=== PATIENT | male | born 1960 | race Caucasian/White ===

== ENCOUNTER 2018-06-02 07:30 | Inpatient (IN) ==
[2018-06-04] MEDS ORDERED: Metoprolol Tartrate 25 MG Tablet PO SCH (05:00)
[2018-06-04] MEDS ORDERED: Chlorhexidine Gluconate 2% 1 Pack (2 Cloths) TOPICAL ONE (05:24)
[2018-06-04] MEDS ORDERED: Metoprolol Tartrate 25 MG Tablet PO ONE (05:24)
[2018-06-04] MEDS ORDERED: Dextrose 50% in Water 50 ML Vial IV.PUSH PRN ×2 (05:29→12:18)
[2018-06-04] MEDS ORDERED: Insulin Regular (For Infusion) 100 UNIT in Sodium Chlor 0.9% Inj 99 ML IV.CONT PRN ×2 (05:29→14:00)
[2018-06-04] MEDS ORDERED: Chlorhexidine 4% Topical 120 APPLIC/120 ML Bottle TOPICAL SCH (05:30)
[2018-06-04] MEDS ORDERED: Sodium Chlor 0.9% Inj 77.5 ML, Papaverine Inj 60 MG, Nitroglycerin Inj 100 MCG, dilTIAZ... IRRIGATION SCH ×3 (05:30)
[2018-06-04] MEDS ORDERED: Sodium Chloride 0.9% Irr Bot 1,000 ML, Vancomycin Inj 1,000 MG IRRIGATION SCH ×2 (05:30)
[2018-06-04] MEDS ORDERED: Sodium Chlor 0.9% Inj 500 ML IV.SIG ONE (05:30)
[2018-06-04] MEDS ORDERED: Vancomycin Inj 1,750 MG in Sodium Chlor 0.9% Inj 500 ML IV.SIG SCH (06:00)
[2018-06-04] MEDS ORDERED: Heparin - SQ 10,000 UNITS/ML Vial ONE (06:38)
[2018-06-04] MEDS ORDERED: fentaNYL Citrate Inj 250 MCG/5 ML Ampul ONE (06:43)
[2018-06-04] MEDS ORDERED: Sodium Chlor 0.9% Inj 20 ML, Bupivacaine Liposo PF 1.3% Inj 20 ML, Dexamethasone PF Inj... IRRIGATION ONE ×4 (06:51)
[2018-06-04] MEDS ORDERED: Sugammadex Inj 200 MG/2 ML Vial IV.PUSH ONE (12:16)
[2018-06-04] MEDS ORDERED: RESP: Racemic Epinephrine 2.25% 0.5 ML Neb NEB PRN (12:18)
[2018-06-04] MEDS ORDERED: Potassium Chlor 20 mEq Premix 20 MEQ/100 ML PIGGYBACK IV.SIG PRN ×2 (12:18)
[2018-06-04] MEDS ORDERED: Calcium Chloride Inj 1 GM/10 ML Syringe IV.PUSH PRN (12:18)
[2018-06-04] MEDS ORDERED: Albumin Human 5% Inj 250 ML IV.SIG PRN (12:18)
[2018-06-04] MEDS ORDERED: Morphine Inj 4 MG/ML Vial IV.PUSH PRN (12:18)
[2018-06-04] MEDS ORDERED: Clevidipine Inj 25 MG/50 ML VIAL IV.CONT PRN (12:18)
[2018-06-04] MEDS ORDERED: Post-op Orders (for Pharmacy) OTHER STA (12:18)
[2018-06-04] MEDS ORDERED: Magnesium Sulfate Inj 2 GM in Sodium Chlor 0.9% Inj 96 ML IV.SIG PRN ×4 (12:18)
--- NOTE | 2018-06-04 12:35 | P.OP ---
Date of procedure: 06/04/18 Anesthesia: GETA Surgeon: Olimpia Lynn MD Operation and Findings: PREOPERATIVE DIAGNOSES 1. Coronary Artery Disease 2. Chronic Atrial Fibrillation POSTOPERATIVE DIAGNOSES Same SURGICAL PROCEDURE 1. Minimally Invasive Coronary Artery Bypass Grafting (MIDCAB) with LOGAN to LAD 2. Left Atrial Appendage Ligation with the Atri-Clip Device 3. Intraoperative Vein Mapping 4. Intercostal Nerve Block DIRECTOR OF PROGRAM MANAGEMENT RIKI Burlseon ANESTHESIA General endotracheal. ADMINISTRATIVE SPECIALIST Huog Ngo CRNA, Wiley Caputo MD PREPARATION ChloraPrep. NEEDLE, SPONGE AND INSTRUMENT COUNT Correct. DRAINS 28 Fr Chest Tube. COMPLICATIONS None. INDICATIONS The patient is a 57 -year-old with coronary artery disease and chronic atrial fibrillation, presenting for surgical correction of the above pathology. DESCRIPTION OF PROCEDURE The patient was brought to the operating room and placed supine on the OR table. Intraoperative vein mapping was performed and revealed suitable-caliber conduit in bilateral lower extremities. Following the induction of adequate general double lumen endotracheal anesthesia and placement of appropriate monitoring devices, the patient was then prepped and draped in the standard sterile fashion. The patient was positioned supine with the left chest slightly bumped up using an inflatable balloon. A left anterior mini-thoracotomy (6 cm) was then performed in the 4th ICS mid- clavicular line and carried down to the pleura. The left pleural space was entered. Using the [employer] Thoratrak retractor, the left internal mammary artery (LOGAN) was dissected free as a pedicle from the posterior sternal table. The entire length from the innominate vein to its bifurcation was harvested. The patient was systemically heparinized and anticoagulation monitored by serial ACT measurements. The pericardium was then opened longitudinally over the anterior wall. Stay sutures were placed and the heart exposed. The LAD was identified coursing trans-apically and isolated. At this point the LOGAN was anastomosed to the mid LAD in an end-to-side fashion in a beating heart manner using the [employer] NS stabilizer and a running 7-0 Prolene stitch. The anastomosis was inspected and appeared to be hemostatic and patent with triphasic flow via doppler evaluation. Next the left atrial appendage was exposed and measured. Using SAVANNAH guidance, the atrial appendage was ligated using the Atri-Clip device. Complete ligation of the appendage lumen was confirmed by SAVANNAH. Strict hemostasis was assured. Protamine was given. The pericardium was reapproximated with interrupted Vicryl sutures. The length of the LOGAN graft as well as the harvest sites were inspected and assured to be hemostatic. Intercostal nerve block was performed using Exparel solution at the level of the incision as well as two rib spaces above and below. A 28 Fr chest tube was placed in the pleural space. The intercostal space was approximated with 2 pericostal sutures of #1 Vicryl. The musculo-fascial layer was then closed in 2 layers. The skin was reapproximated with subcuticular stitch and Dermabond. The patient tolerated the procedure well and was extubated in the operating room and transferred to CVICU in stable condition.
[2018-06-04] MEDS ORDERED: Naloxone Inj 0.4 MG/ML Vial ONE (12:51)
[2018-06-04] MEDS ORDERED: Metoprolol Inj 5 MG/5 ML Vial IV.PUSH PRN (13:00)
[2018-06-04] MEDS ORDERED: Dexmedetomidine Inj 200 MCG in Sodium Chlor 0.9% Inj 48 ML IV.CONT PRN (13:00)
[2018-06-04] MEDS ORDERED: Acetaminophen 325 MG Tablet PO PRN (13:00)
[2018-06-04] MEDS ORDERED: Acetaminophen 650 MG Supp RECTAL PRN (13:00)
[2018-06-04] MEDS ORDERED: hydrALAZINE HCl Inj 20 MG/ML Vial ONE (13:15)
[2018-06-04] MEDS: Calcium Chloride Inj 1 GM in Sodium Chlor 0.9% Inj 100 ML IV.SIG PRN ×2 (13:42→16:38)
--- NOTE | 2018-06-04 13:42 | XR ---
EXAM DATE: 06/04/2018 1:38 PM EST AGE/SEX: 57 years / Male INDICATIONS: Post op cabg. CLINICAL DATA: This is the patient's initial encounter. Patient reports that signs and symptoms have been present for 1 day and indicates a pain score of Nonresponsive. MEDICAL/SURGICAL HISTORY: Chronic obstructive pulmonary disease. a-fib None. COMPARISON: [facility], CHEST 2V PA&LAT, 05/28/2018. . FINDINGS: Central line and left chest tube in good position. Lungs are under aerated with mild interstitial pro minence. Mild prominence to the cardiac silhouette on this expiratory film. There is no pneumothorax. CONCLUSION: Left chest tube without pneumothorax Under aerated lungs with mild interstitial prominence. Electronically signed by: Robles Paris MD Board Certified Radiologist 06/04/2018 1:40 PM EST
--- NOTE | 2018-06-04 13:44 | P.PNCV ---
- Note Subjective/Hospital Course: 57/ male recently seen in office by Dr Lynn for new onset progressive SOB since January, of atrial fib on xarelto. Work up included cardiac cath demonstrating significant disease involving ostium of the LAD . Normal EF PMH: COPD, HLP, HTN, Thyroid disease , chronic tobacco abuse 06/04 pt electively admitted for surgery PREOPERATIVE DIAGNOSES 1. Coronary Artery Disease 2. Chronic Atrial Fibrillation POSTOPERATIVE DIAGNOSES Same SURGICAL PROCEDURE 1. Minimally Invasive Coronary Artery Bypass Grafting (MIDCAB) with LOGAN to LAD 2. Left Atrial Appendage Ligation with the Atri-Clip Device 3. Intraoperative Vein Mapping 4. Intercostal Nerve Block Objective: Vital Signs - 24 hr 06/04/18 06:20 06/04/18 13:17 06/04/18 13:22 Temperature 98.4 F Pulse Rate 69 74 80 Respiratory Rate 18 4 L 15 Blood Pressure 129/67 Pulse Oximetry 97 Labs: Laboratory Results - last 12 hr 06/04/18 06:09 Blood Type O Positive Antibody Screen Negative MTS Gel Crossmatch See Detail
--- NOTE | 2018-06-04 13:47 | P.DCO ---
- Diagnosis (1) S/P CABG x 1 Status: Acute (2) CAD (coronary artery disease), [place] coronary artery Status: Acute (3) Atrial fibrillation Status: Acute (4) Hyperlipidemia Status: Acute (5) Hypertension Status: Acute - Home Health Nursing Order: Medical education, Signs/symptoms of disease process, Wound care and dressing changes, Nursing assessment with vital signs Instructions: Heart and Vascular Surgery patients *Special attention to sternal dressing Mandatory frequency Assess and evaluation, 4 days in a row The next week 3X week 2 times a week for 4 weeks 1 time a week for 5 weeks Schedule Heart and Vascular patients for full 60 day certification period Initial visit Review Open Heart Surgery Discharge Instructions (Sternal precautions, Activity, Elastic hose, Incision care, Driving, Incentive spirometry, Smoking, [place], Work and other) Need Betadine to paint incision Medication reconciliation Importance of follow up care/ check on appointments Make calendar record temperature daily When to call [facility] at Home nurse, review instructions, phone list Incentive Spirometry, demonstration Visit 1- Begin discharge instruction for patient family and/ or caregiver using teach back method- Signs and symptoms of infection Disease characteristics Medicines and side effects Foods and nutrition/ appetite Infection control/ hand washing/ hygiene Visit 2- Continue teaching Discharge instructions- include additional information on smoking cessation , sternal dressing (sternal vac) Visit 3- Continue teaching- Cough and deep breathing, incision monitoring. Choose my plate Visit 4- Continue teaching- Discuss limitations Discuss how they are feeling Discuss progress toward goals Remaining visits- continue teaching and monitoring For any questions please call : Saturday 8am-5pm Heart & Vascular Surgery Office ( Dr. Lynn & Dr. Wilburn), After Hours / Nights (5pm -8am) Weekends and Holidays Please call [facility] Cardiac Intermediate Care Unit (CIC) Charge Nurse Incentive spirometry Q1 hr x 10, while awake, also use acapella device hourly whole awake Sternal Breast Bone Precautions: NO pushing or pulling, ( pt must use sternal pillow to support chest with all activities and with coughing ( takes up to 3 months breast bone to heal ) Daily incision care: ok to shower daily, no tub bath. Wash all incisions with liquid dial soap, clean wash cloth to each site, rinse and pat dry. Observe for any signs of infection, such as drainage which is dark yellow, ibrahim, green or foul smelling. Immediately report to the surgeon any drainage from the chest incision, or legs, and for any abnormal drainage from the chest tube sites. Notify surgeon if any temp >101.5 degrees F. When specialty dressing removed/ or if you do not have one, continue to shower daily as above, then rinse and pat incision dry and paint with betadine daily x 5 days. Allow steri strips to fall off if you have any. Avoid lotions, creams, salves, oils, etc. for the first month F/U appointment: as per [place] instructions: PCP in 2 weeks, CV surgeon 2 weeks, Hammer Operator 3-4 weeks For any questions regarding incisions/ dressing / meds / post op care or above Symptoms, Saturday 8am-5pm Heart & Vascular Surgery Office ( Dr. Lynn & Dr. Wilburn), After Hours / Nights (5pm -8am) Weekends and Holidays Please call [facility] Cardiac Intermediate Care Unit (CIC) Charge Nurse - Case Management Consult Case Management Consult-Home Health: Yes - Certification I have seen patient Raudel Horton on 06/04/18. My clinical findings support the need for the requested home health care services because: Deconditioned with increased weakness I certify that my clinical findings support that this patient is homebound because: Post-op weakness
[2018-06-04] MEDS ORDERED: Phenylephrine Inj 40 MG in Sodium Chlor 0.9% Inj 496 ML IV.CONT PRN (14:00)
[2018-06-04] MEDS ORDERED: Nitroglycerin Drip Premix 50 MG/250 ML BOTTLE IV.CONT PRN (14:35)
[2018-06-04] MEDS: fentaNYL Citrate Inj 100 MCG/2 ML Ampul IV.PUSH PRN ×4 (15:15→21:40)
[2018-06-04] MEDS: Potassium Chlor 20 mEq Premix 20 MEQ/100 ML PIGGYBACK IV.SIG PRN ×2 (16:27→21:39)
[2018-06-04] MEDS ORDERED: VANCOMYCIN IV.SIG SCH (21:00)
[2018-06-04] MEDS ORDERED: SODIUM CHLOR 0.9% IV.SIG SCH (21:00)
[2018-06-04] MEDS: Vancomycin Inj 1,750 MG in Sodium Chlor 0.9% Inj 500 ML IV.SIG SCH (21:35)
[2018-06-04] MEDS: Amiodarone 200 MG Tablet PO SCH (21:35)
[2018-06-04] MEDS: Mupirocin 2% Nasal Oint Topical Syringe EACH NARE SCH (21:38)
[2018-06-04] MEDS: Ketorolac Inj 30 MG/ML (IVP) Vial IV.PUSH PRN (21:39)
[2018-06-05] MEDS: fentaNYL Citrate Inj 100 MCG/2 ML Ampul IV.PUSH PRN ×3 (01:46→04:48)
[2018-06-05 05:29] LABS: Hematocrit 33.7 % (39.0-51.0); Hemoglobin 10.7 gm/dL (13.0-17.0); Mean Corpuscular HGB Conc 31.8 % (32.0-36.0); Mean Corpuscular Hemoglobin 26.9 pg (27.0-34.0); Mean Corpuscular Volume 84.6 fL (80.0-100.0); Mean Platelet Volume 8.5 fL (7.0-11.0); Platelet Count 209 th/mm3 (150-450); Red Blood Count 3.99 mil/mm3 (4.50-5.90); Red Cell Distribution Width 16.7 % (11.6-17.2); White Blood Count 11.7 th/mm3 (4.0-11.0)
--- NOTE | 2018-06-05 05:48 | XR ---
EXAM DATE: 06/05/2018 5:39 AM EST AGE/SEX: 57 years / Male INDICATIONS: Shortness of breath, possible pneumothorax. CLINICAL DATA: This is the patient's subsequent encounter. Patient reports that signs and symptoms h ave been present for 2 days and indicates a pain score of 8/10. MEDICAL/SURGICAL HISTORY: Chronic obstructive pulmonary disease. A-fib. CABG. [place] [facility] [place]. . FINDINGS: A single AP view of the chest demonstrates a left thoracostomy tube without pneumothorax. Low lung vo lumes bilaterally. Interstitial prominence throughout the lungs is unchanged. Developing consolidatio n within the left base. No effusions. Heart is mildly enlarged. Right-sided central line. Subcutane ous cutaneous air overlies left chest. CONCLUSION: 1. Developing consolidation within the left lung base. 2. No pneumothorax. Electronically signed by: Dm Pratt MD Board Certified Radiologist 06/05/2018 5:47 AM EST
[2018-06-05 05:49] LABS: Anion Gap 5 meq/L (5-15); Blood Urea Nitrogen 13 mg/dL (7-18); Calcium 8.3 mg/dL (8.5-10.1); Carbon Dioxide 25.6 meq/L (21.0-32.0); Chloride 110 meq/L (98-107); Glomerular Filtration Rate Greater Than 89 mL/min (>89); Glucose,Random 120 mg/dL (74-106); Magnesium 2.2 mg/dL (1.5-2.5); Sodium 141 meq/L (136-145)
[2018-06-05] MEDS: Amiodarone 200 MG Tablet PO SCH (08:21)
[2018-06-05] MEDS: Vancomycin Inj 1,750 MG in Sodium Chlor 0.9% Inj 500 ML IV.SIG SCH ×2 (08:22→21:00)
[2018-06-05] MEDS ORDERED: Sod Phosphate/Sod Biphosphate (Adult) Enema 133 ML Bottle RECTAL PRN (09:06)
[2018-06-05] MEDS ORDERED: Dextrose 50% in Water 50 ML Vial IV.PUSH PRN (09:06)
[2018-06-05] MEDS ORDERED: Bisacodyl 10 MG Supp RECTAL PRN (09:06)
--- NOTE | 2018-06-05 09:29 | P.PNCV ---
- Note Subjective/Hospital Course: 57/ male recently seen in office by Dr Lynn for new onset progressive SOB since January, of atrial fib on xarelto. Work up included cardiac cath demonstrating significant disease involving ostium of the LAD . Normal EF PMH: COPD, HLP, HTN, Thyroid disease , chronic tobacco abuse 06/04 pt electively admitted for surgery PREOPERATIVE DIAGNOSES 1. Coronary Artery Disease 2. Chronic Atrial Fibrillation POSTOPERATIVE DIAGNOSES Same SURGICAL PROCEDURE 1. Minimally Invasive Coronary Artery Bypass Grafting (MIDCAB) with LOGAN to LAD 2. Left Atrial Appendage Ligation with the Atri-Clip Device 3. Intraoperative Vein Mapping 4. Intercostal Nerve Block extubated after surgery crystalloid 3200cc, EBL 300cc 06/05 up in chair, painful in NSR chest tube to wall suction on Objective: Vital Signs - 24 hr 06/04/18 13:10 06/04/18 13:15 06/04/18 13:17 Temperature 97.5 F L Pulse Rate 82 74 Respiratory Rate 18 4 L Blood Pressure 167/84 H Pulse Oximetry 97 97 06/04/18 13:22 06/04/18 14:00 06/04/18 14:30 Temperature Pulse Rate 80 77 Respiratory Rate 15 19 Blood Pressure 137/80 Pulse Oximetry 92 L 90 L 06/04/18 14:39 06/04/18 15:00 06/04/18 16:22 Temperature 98 F Pulse Rate 71 Respiratory Rate 15 10 L Blood Pressure 124/77 Pulse Oximetry 98 97 06/04/18 16:35 06/04/18 17:04 06/04/18 17:21 Temperature Pulse Rate 80 Respiratory Rate 20 14 Blood Pressure Pulse Oximetry 96 06/04/18 18:09 06/04/18 18:10 06/04/18 19:00 Temperature 98.2 F Pulse Rate 88 Respiratory Rate 12 12 20 Blood Pressure 131/77 Pulse Oximetry 97 06/04/18 21:28 06/04/18 22:10 06/04/18 23:00 Temperature 98.2 F Pulse Rate 88 91 H Respiratory Rate 20 20 20 Blood Pressure 113/57 L Pulse Oximetry 97 06/05/18 03:00 06/05/18 03:50 06/05/18 04:47 Temperature 98.2 F Pulse Rate 88 83 Respiratory Rate 20 16 20 Blood Pressure 112/64 Pulse Oximetry 97 06/05/18 05:20 06/05/18 06:50 06/05/18 07:00 Temperature 98.2 F Pulse Rate 82 Respiratory Rate 20 20 12 Blood Pressure 116/70 Pulse Oximetry 97 GENERAL: A&O x 3 SKIN: Warm and dry. prevena dressing to left chest area HEAD: Normocephalic. EYES: No scleral icterus. No injection or drainage. NECK: Supple, trachea midline. No JVD or lymphadenopathy. CARDIOVASCULAR: Regular rate and rhythm without murmurs, gallops, or rubs. RESPIRATORY: Breath sounds equal bilaterally. No accessory muscle use. chest tube to wall suction/ no air leak GASTROINTESTINAL: Abdomen soft, non-tender, nondistended. MUSCULOSKELETAL: No cyanosis, or edema. BACK: Nontender without obvious deformity. No CVA tenderness. Labs: Laboratory Results - last 12 hr 06/04/18 06/05/18 06/05/18 22:21 00:20 03:28 WBC RBC Hgb Hct MCV MCH MCHC RDW Plt Count MPV Sodium Potassium Chloride Carbon Dioxide Anion Gap BUN Creatinine Estimated GFR POC Glucose 118 H 106 143 H Random Glucose Calcium Magnesium 06/05/18 06/05/18 06/05/18 04:53 04:55 04:55 WBC 11.7 H RBC 3.99 L Hgb 10.7 L Hct 33.7 L MCV 84.6 MCH 26.9 L MCHC 31.8 L RDW 16.7 Plt Count 209 MPV 8.5 Sodium 141 Potassium 4.0 Chloride 110 H Carbon Dioxide 25.6 Anion Gap 5 BUN 13 Creatinine 0.84 Estimated GFR Greater than 89 POC Glucose 122 H Random Glucose 120 H Calcium 8.3 L Magnesium 2.2 06/05/18 07:20 WBC RBC Hgb Hct MCV MCH MCHC RDW Plt Count MPV Sodium Potassium Chloride Carbon Dioxide Anion Gap BUN Creatinine Estimated GFR POC Glucose 77 Random Glucose Calcium Magnesium Result Diagrams: 06/05/18 04:55 06/05/18 04:55 Cardiovascular: NSR - Plan (1) S/P CABG x 1 Plan: Neuro: avoid Benzo's pain control Resp : pulm toileting nebs ezpap wean 02 as tolerated CV: start BB, on ASA, statin , BB GI: on heart healthy diet PPI endo: weaned off insulin gtt sliding scale CM to eval [facility]
[2018-06-05] MEDS: Ketorolac Inj 30 MG/ML (IVP) Vial IV.PUSH PRN ×2 (10:37→21:20)
--- NOTE | 2018-06-05 11:08 | P.DIET ---
Nutritional Evaluation Screening comments: MDC for Diet Education s/p CABG x 1 on (06/04) received. Patient Navigator to provide education. Consult RD if complexities with diet education arise.
[2018-06-05] MEDS: Insulin NovoLOG Aspart Correctional Sugar Inj SQ SCH ×4 (11:57→22:13)
[2018-06-05] MEDS: Levothyroxine 50 MCG Tablet PO SCH (11:58)
[2018-06-05] MEDS: Metoprolol Tartrate 25 MG Tablet PO SCH ×2 (11:58→20:59)
[2018-06-05] MEDS: Budesonide-Formoterol 160/4.5 MCG 6 GM Inhaler INH SCH ×2 (14:41→21:00)
--- NOTE | 2018-06-05 17:26 | ECG ---
Date Performed: 06/05/2018 Time Performed: 05:18:10 PTAGE: 57 years EKG: Sinus rhythm . Possible inferior infarct - age undetermined When compared to previous tracing, Q waves are now not ed in Lead AVF, Clinical correlation is recommended Abnormal ECG PREVIOUS TRACING : 05/28/2018 10.54 DOCTOR: Wiley Kebede Interpretating Date/Time 06/05/2018 17:24:39
[2018-06-05] MEDS: Mupirocin 2% Nasal Oint Topical Syringe EACH NARE SCH ×2 (18:25→21:00)
[2018-06-05] MEDS: Docusate Sodium 100 MG Capsule PO SCH (20:59)
[2018-06-05] MEDS ORDERED: Amiodarone Inj 150 MG in Dextrose 5% in Water Inj 97 ML IV.SIG ONE ×2 (21:00)
[2018-06-06] MEDS: Insulin NovoLOG Aspart Correctional Sugar Inj SQ SCH ×5 (01:58→22:16)
[2018-06-06 04:49] LABS: Baso # (Auto) 0.1 th/mm3 (0.0-0.2); Baso % (Auto) 0.5 % (0.0-2.0); Eos # (Auto) 0.1 th/mm3 (0.0-0.4); Eos % (Auto) 0.7 % (0.0-4.0); Hematocrit 34.3 % (39.0-51.0); Hemoglobin 11.1 gm/dL (13.0-17.0); Lymph # (Auto) 1.3 th/mm3 (1.0-4.8); Lymph % (Auto) 9.2 % (9.0-44.0); Mean Corpuscular HGB Conc 32.3 % (32.0-36.0); Mean Corpuscular Hemoglobin 27.4 pg (27.0-34.0); Mean Platelet Volume 8.8 fL (7.0-11.0); Mono # (Auto) 1.8 th/mm3 (0.0-0.9); Mono % (Auto) 12.8 % (0.0-8.0); Neut # (Auto) 10.8 th/mm3 (1.8-7.7); Neut % (Auto) 76.8 % (16.0-70.0); Platelet Count 212 th/mm3 (150-450); Red Blood Count 4.03 mil/mm3 (4.50-5.90); Red Cell Distribution Width 16.9 % (11.6-17.2)
[2018-06-06 05:17] LABS: Calcium 8.7 mg/dL (8.5-10.1); Carbon Dioxide 27.8 meq/L (21.0-32.0); Magnesium 2.4 mg/dL (1.5-2.5); Potassium 4.3 meq/L (3.5-5.1)
[2018-06-06] MEDS: Levothyroxine 50 MCG Tablet PO SCH (06:14)
[2018-06-06] MEDS: Polyethylene Glycol 3350 17 GM Packet PO SCH (09:43)
[2018-06-06] MEDS: Docusate Sodium 100 MG Capsule PO SCH ×2 (09:43→21:55)
[2018-06-06] MEDS: Multivitamin/Minerals Therapeutic Tablet PO SCH (09:44)
[2018-06-06] MEDS: Metoprolol Tartrate 25 MG Tablet PO SCH (09:44)
[2018-06-06] MEDS: Budesonide-Formoterol 160/4.5 MCG 6 GM Inhaler INH SCH ×2 (09:45→21:56)
[2018-06-06] MEDS ORDERED: Metoprolol Tartrate 25 MG Tablet PO ONE (10:30)
--- NOTE | 2018-06-06 11:21 | P.PNCV ---
- Note Subjective/Hospital Course: 57/ male recently seen in office by Dr Lynn for new onset progressive SOB since January, of atrial fib on xarelto. Work up included cardiac cath demonstrating significant disease involving ostium of the LAD . Normal EF PMH: COPD, HLP, HTN, Thyroid disease , chronic tobacco abuse 06/04 pt electively admitted for surgery PREOPERATIVE DIAGNOSES 1. Coronary Artery Disease 2. Chronic Atrial Fibrillation POSTOPERATIVE DIAGNOSES Same SURGICAL PROCEDURE 1. Minimally Invasive Coronary Artery Bypass Grafting (MIDCAB) with LOGAN to LAD 2. Left Atrial Appendage Ligation with the Atri-Clip Device 3. Intraoperative Vein Mapping 4. Intercostal Nerve Block extubated after surgery crystalloid 3200cc, EBL 300cc 06/05 up in chair, painful in NSR chest tube to wall suction on 06/06 very little pulm reserve, desats easily with any exertion on nebs, symbicort went back into afib last night / on amiodarone gtt/ resume taper dose this evening / restart xarelto and dc po plavix chest tube dc , prevena dressing dc continue ASA, statin BB Objective: Vital Signs - 24 hr 06/05/18 11:52 06/05/18 12:47 06/05/18 15:00 Temperature 98.1 F Pulse Rate 72 77 Respiratory Rate 14 15 16 Blood Pressure 109/69 Pulse Oximetry 95 95 06/05/18 16:43 06/05/18 17:00 06/05/18 18:02 Temperature Pulse Rate 83 Respiratory Rate 22 16 Blood Pressure Pulse Oximetry 93 L 06/05/18 19:00 06/05/18 20:00 06/05/18 20:38 Temperature 98.9 F Pulse Rate 85 Respiratory Rate 18 Blood Pressure 119/78 Pulse Oximetry 93 L 93 L 93 L 06/05/18 23:00 06/06/18 03:00 06/06/18 07:00 Temperature 98.0 F 98.3 F Pulse Rate 71 69 118 H Respiratory Rate 18 18 16 Blood Pressure 102/63 118/75 140/69 Pulse Oximetry 94 L 96 94 L 06/06/18 08:00 06/06/18 08:34 Temperature Pulse Rate 108 H Respiratory Rate 18 Blood Pressure Pulse Oximetry 94 L 95 GENERAL: A&O x 3 SKIN: Warm and dry. incision intact and well approximated, some swelling to site engineer: Normocephalic. EYES: No scleral icterus. No injection or drainage. NECK: Supple, trachea midline. No JVD or lymphadenopathy. CARDIOVASCULAR: irregular rate and rhythm without murmurs, gallops, or rubs. mild general edema RESPIRATORY: Breath sounds equal bilaterally. No accessory muscle use. chest tube removed without difficulty / bibasilar crackles with some exp wheeze GASTROINTESTINAL: Abdomen soft, non-tender, nondistended. MUSCULOSKELETAL: No cyanosis, or edema. BACK: Nontender without obvious deformity. No CVA tenderness. Labs: Laboratory Results - last 12 hr 06/06/18 06/06/18 06/06/18 01:55 03:59 03:59 WBC 14.0 H RBC 4.03 L Hgb 11.1 L Hct 34.3 L MCV 85.0 MCH 27.4 MCHC 32.3 RDW 16.9 Plt Count 212 MPV 8.8 Neut % (Auto) 76.8 H Lymph % (Auto) 9.2 [place] % (Auto) 12.8 H Eos % (Auto) 0.7 Baso % (Auto) 0.5 Neut # (Auto) 10.8 H Lymph # (Auto) 1.3 [place] # (Auto) 1.8 H Eos # (Auto) 0.1 Baso # (Auto) 0.1 WBC Differential . Differential Comment Auto diff final Sodium 138 Potassium 4.3 Chloride 106 Carbon Dioxide 27.8 Anion Gap 4 L BUN 26 H Creatinine 0.95 Estimated GFR 82 L POC Glucose 122 H Random Glucose 122 H Calcium 8.7 Magnesium 2.4 06/06/18 06:17 WBC RBC Hgb Hct MCV MCH MCHC RDW Plt Count MPV Neut % (Auto) Lymph % (Auto) [place] % (Auto) Eos % (Auto) Baso % (Auto) Neut # (Auto) Lymph # (Auto) [place] # (Auto) Eos # (Auto) Baso # (Auto) WBC Differential Differential Comment Sodium Potassium Chloride Carbon Dioxide Anion Gap BUN Creatinine Estimated GFR POC Glucose 134 H Random Glucose Calcium Magnesium Result Diagrams: 06/06/18 03:59 06/06/18 03:59 Telemetry: NSR> Afib - Plan (1) S/P CABG x 1 Plan: Neuro: pain control Resp : pulm toileting nebs ezpap symbicort wean 02 as tolerated DC chest tube add two dose of solumedrol CV: BB, on ASA, statin , BB amiodarone change back to po amiodarone this pm resume xarelto and dc plavix GI: on heart healthy diet PPI endo: sliding scale CM to eval [facility]
[2018-06-06 12:40] LABS: Phosphorus 2.5 mg/dL (2.5-4.9)
[2018-06-06 12:49] LABS: Thyroid Stimulating Hormone 16.4 uIU/mL (0.358-3.740)
[2018-06-06] MEDS: Mupirocin 2% Nasal Oint Topical Syringe EACH NARE SCH (13:34)
[2018-06-06] MEDS: MethylPREDNISolone Sod Succinate Inj 40 MG/ML Vial IV.PUSH SCH ×2 (14:16→21:55)
[2018-06-06] MEDS ORDERED: Amiodarone 200 MG Tablet PO SCH (20:00)
[2018-06-06] MEDS: Amiodarone 200 MG Tablet PO SCH (20:22)
[2018-06-06] MEDS: Metoprolol Tartrate 50 MG Tablet PO SCH (21:55)
[2018-06-07] MEDS: Amiodarone 200 MG Tablet PO SCH ×3 (03:58→18:05)
--- NOTE | 2018-06-07 04:16 | XR ---
EXAM DATE: 06/07/2018 3:58 AM EST AGE/SEX: 57 years / Male INDICATIONS: Shortness of breath, possible pneumothorax. CLINICAL DATA: This is the patient's subsequent encounter. Patient reports that signs and symptoms h ave been present for 4 - 6 days and indicates a pain score of 4/10. MEDICAL/SURGICAL HISTORY: Chronic obstructive pulmonary disease. A-fib. CABG. COMPAR[place]: [facility] [place] 1[place]INGLE AP, [place]/05/2018. . FINDINGS: Portable AP view of the chest demonstrates a normal-sized cardiac silhouette. Atrial appendage clip r emains present. Right IJ line remains in place. Lungs are underinflated with bibasilar airspace opaci ty, left greater than right. No pleural effusion or pneumothorax is visualized. Partially visualized left chest wall subcutaneous emphysema. CONCLUSION: No pneumothorax is visualized, as questioned. Lungs are underinflated and there is bibasilar airspace opacity, left greater than right, representing either atelectasis or consolidation. Electronically signed by: Porter Calderon MD Board Certified Radiologist 06/07/2018 4:15 AM EST
[2018-06-07 05:09] LABS: Anion Gap 6 meq/L (5-15); Blood Urea Nitrogen 22 mg/dL (7-18); Calcium 8.5 mg/dL (8.5-10.1); Carbon Dioxide 29.2 meq/L (21.0-32.0); Chloride 103 meq/L (98-107); Glomerular Filtration Rate Greater Than 89 mL/min (>89); Glucose,Random 141 mg/dL (74-106); Magnesium 2.5 mg/dL (1.5-2.5); Potassium 4.1 meq/L (3.5-5.1); Sodium 138 meq/L (136-145)
[2018-06-07] MEDS: Levothyroxine 50 MCG Tablet PO SCH (06:29)
[2018-06-07] MEDS: Polyethylene Glycol 3350 17 GM Packet PO SCH (08:11)
[2018-06-07] MEDS: Multivitamin/Minerals Therapeutic Tablet PO SCH (08:12)
[2018-06-07] MEDS: Metoprolol Tartrate 50 MG Tablet PO SCH ×2 (08:13→21:21)
[2018-06-07] MEDS: MethylPREDNISolone Sod Succinate Inj 40 MG/ML Vial IV.PUSH SCH ×2 (08:13→21:22)
[2018-06-07] MEDS: Insulin NovoLOG Aspart Correctional Sugar Inj SQ SCH ×4 (08:13→21:22)
[2018-06-07] MEDS: Docusate Sodium 100 MG Capsule PO SCH ×2 (08:13→21:21)
[2018-06-07] MEDS: Rivaroxaban 20 MG Tablet PO SCH (08:13)
[2018-06-07] MEDS: Budesonide-Formoterol 160/4.5 MCG 6 GM Inhaler INH SCH ×2 (08:27→21:21)
--- NOTE | 2018-06-07 11:17 | P.PNCV ---
- Note CVT: Post Op Day #: 3 Subjective/Hospital Course: 57/ male recently seen in [facility] office by Dr Lynn for new onset progressive SOB since January, of atrial fib on xarelto. Work up included cardiac cath demonstrating significant disease involving ostium of the LAD . Normal EF PMH: COPD, HLP, HTN, Thyroid disease , chronic tobacco abuse 06/04 pt electively admitted for surgery PREOPERATIVE DIAGNOSES 1. Coronary Artery Disease 2. Chronic Atrial Fibrillation POSTOPERATIVE DIAGNOSES Same SURGICAL PROCEDURE 1. Minimally Invasive Coronary Artery Bypass Grafting (MIDCAB) with LOGAN to LAD 2. Left Atrial Appendage Ligation with the Atri-Clip Device 3. Intraoperative Vein Mapping 4. Intercostal Nerve Block extubated after surgery crystalloid 3200cc, EBL 300cc 06/05 up in chair, painful in NSR chest tube to wall suction on 06/06 very little pulm reserve, desats easily with any exertion on nebs, symbicort went back into afib last night / on amiodarone gtt/ resume taper dose this evening / restart xarelto and dc po plavix chest tube dc , prevena dressing dc continue ASA, statin BB 06/07/18 c/o incisional pain, still on O2 Objective: Vital Signs - 24 hr 06/06/18 13:16 06/06/18 13:36 06/06/18 15:00 Temperature 98.3 F Pulse Rate 81 78 Respiratory Rate 20 18 18 Blood Pressure 123/71 Pulse Oximetry 95 06/06/18 18:31 06/06/18 19:00 06/06/18 20:16 Temperature 97.6 F Pulse Rate 90 79 Respiratory Rate 18 24 16 Blood Pressure 133/72 Pulse Oximetry 92 L 97 06/06/18 21:00 06/06/18 22:00 06/06/18 23:00 Temperature 97.3 F L Pulse Rate 76 80 90 Respiratory Rate 18 Blood Pressure 127/62 Pulse Oximetry 91 L 06/07/18 00:00 06/07/18 01:00 06/07/18 02:00 Temperature Pulse Rate 78 74 74 Respiratory Rate Blood Pressure Pulse Oximetry 06/07/18 03:00 06/07/18 03:54 06/07/18 04:00 Temperature 97.5 F L Pulse Rate 75 78 Respiratory Rate 18 16 Blood Pressure 129/62 Pulse Oximetry 95 06/07/18 05:00 06/07/18 06:00 06/07/18 07:00 Temperature 98.4 F Pulse Rate 112 H 104 H 112 H Respiratory Rate 16 Blood Pressure 119/70 Pulse Oximetry 95 06/07/18 08:00 06/07/18 11:00 Temperature Pulse Rate Respiratory Rate Blood Pressure Pulse Oximetry 95 95 Labs: Laboratory Results - last 12 hr 06/04/18 06/07/18 06/07/18 06:09 04:00 07:33 Sodium 138 Potassium 4.1 Chloride 103 Carbon Dioxide 29.2 Anion Gap 6 BUN 22 H Creatinine 0.86 Estimated GFR Greater than 89 POC Glucose 167 H Random Glucose 141 H Calcium 8.5 Magnesium 2.5 MTS Gel Crossmatch See Detail Result Diagrams: 06/06/18 03:59 06/07/18 04:00 Imaging: Chest X-Ray 06/07/18 06:00 CONCLUSION: No pneumothorax is visualized, as questioned. Lungs are underinflated and there is bibasilar airspace opacity, left greater than right, representing either atelectasis or consolidation. Cardiovascular: RRR Pulmonary: Decreased BS with crackles bilat, L>R GI/: NABS Incision: dry and intact - Plan (1) S/P CABG x 1 Plan: Neuro: pain control Resp : pulm toileting nebs ezpap symbicort wean 02 as tolerated DC chest tube add two dose of solumedrol CV: BB, on ASA, statin , BB amiodarone change back to po amiodarone this pm resume xarelto and dc plavix GI: on heart healthy diet PPI endo: sliding scale CM to eval [facility] Diurese Wean O2 Possibly D/C tomorrow
[2018-06-08] MEDS: Amiodarone 200 MG Tablet PO SCH ×3 (04:07→18:03)
[2018-06-08] MEDS: Levothyroxine 50 MCG Tablet PO SCH (06:32)
[2018-06-08] MEDS: Rivaroxaban 20 MG Tablet PO SCH (09:29)
[2018-06-08] MEDS: Multivitamin/Minerals Therapeutic Tablet PO SCH (09:29)
[2018-06-08] MEDS: Docusate Sodium 100 MG Capsule PO SCH ×2 (09:29→20:33)
[2018-06-08] MEDS: Polyethylene Glycol 3350 17 GM Packet PO SCH (09:29)
[2018-06-08] MEDS: Metoprolol Tartrate 50 MG Tablet PO SCH ×2 (09:29→20:33)
[2018-06-08] MEDS: Insulin NovoLOG Aspart Correctional Sugar Inj SQ SCH ×4 (09:36→20:34)
--- NOTE | 2018-06-08 12:54 | P.PNCV ---
- Note CVT: Post Op Day #: 4 Subjective/Hospital Course: 57/ male recently seen in [facility] office by Dr Lynn for new onset progressive SOB since January, of atrial fib on xarelto. Work up included cardiac cath demonstrating significant disease involving ostium of the LAD . Normal EF PMH: COPD, HLP, HTN, Thyroid disease , chronic tobacco abuse 06/04 pt electively admitted for surgery PREOPERATIVE DIAGNOSES 1. Coronary Artery Disease 2. Chronic Atrial Fibrillation POSTOPERATIVE DIAGNOSES Same SURGICAL PROCEDURE 1. Minimally Invasive Coronary Artery Bypass Grafting (MIDCAB) with LOGAN to LAD 2. Left Atrial Appendage Ligation with the Atri-Clip Device 3. Intraoperative Vein Mapping 4. Intercostal Nerve Block extubated after surgery crystalloid 3200cc, EBL 300cc 06/05 up in chair, painful in NSR chest tube to wall suction on 06/06 very little pulm reserve, desats easily with any exertion on nebs, symbicort went back into afib last night / on amiodarone gtt/ resume taper dose this evening / restart xarelto and dc po plavix chest tube dc , prevena dressing dc continue ASA, statin BB 06/07/18 c/o incisional pain, still on O2 06/08/18 Diuresing well. Still up ~4kg Continues on 2 liters O2 with dyspnea on exertion Objective: Vital Signs - 24 hr 06/07/18 13:00 06/07/18 14:00 06/07/18 15:00 Temperature 97.4 F L Pulse Rate 85 78 79 Respiratory Rate 20 16 Blood Pressure 120/59 L Pulse Oximetry 91 L 06/07/18 16:00 06/07/18 17:00 06/07/18 18:00 Temperature Pulse Rate 72 78 118 H Respiratory Rate Blood Pressure Pulse Oximetry 06/07/18 19:00 06/07/18 20:00 06/07/18 21:00 Temperature 99.2 F Pulse Rate 101 H 134 H 112 H Respiratory Rate 20 Blood Pressure 117/65 Pulse Oximetry 93 L 06/07/18 22:00 06/07/18 23:00 06/08/18 00:00 Temperature 97.7 F Pulse Rate 116 H 108 H 104 H Respiratory Rate 20 Blood Pressure 101/73 Pulse Oximetry 94 L 06/08/18 01:00 06/08/18 02:00 06/08/18 03:00 Temperature 97.8 F Pulse Rate 106 H 106 H 76 Respiratory Rate 20 Blood Pressure 125/62 Pulse Oximetry 97 06/08/18 04:00 06/08/18 05:00 06/08/18 06:00 Temperature Pulse Rate 74 72 60 Respiratory Rate Blood Pressure Pulse Oximetry 06/08/18 07:00 06/08/18 08:00 06/08/18 10:38 Temperature 97.8 F Pulse Rate 78 Respiratory Rate 18 Blood Pressure 125/58 L Pulse Oximetry 96 96 92 L 06/08/18 11:00 Temperature 98.5 F Pulse Rate 66 Respiratory Rate 18 Blood Pressure 109/60 Pulse Oximetry 94 L Labs: Laboratory Results - last 12 hr 06/08/18 06/08/18 08:25 11:44 POC Glucose 179 H 119 H Result Diagrams: 06/06/18 03:59 06/07/18 04:00 Imaging: Chest X-Ray 06/07/18 06:00 CONCLUSION: No pneumothorax is visualized, as questioned. Lungs are underinflated and there is bibasilar airspace opacity, left greater than right, representing either atelectasis or consolidation. Cardiovascular: RRR Telemetry: NSR Pulmonary: Few crackles bilat GI/: NABS Incision: dry and intact - Plan (1) S/P CABG x 1 Plan: Neuro: pain control Resp : pulm toileting nebs ezpap symbicort wean 02 as tolerated DC chest tube add two dose of solumedrol CV: BB, on ASA, statin , BB amiodarone change back to po amiodarone this pm resume xarelto and dc plavix GI: on heart healthy diet PPI endo: sliding scale CM to eval [facility] Walk test for possible need for home oxygen Continue lasix Wean O2 Home tomorrow
[2018-06-08] MEDS: Budesonide-Formoterol 160/4.5 MCG 6 GM Inhaler INH SCH ×2 (13:59→20:36)
[2018-06-09] MEDS: Amiodarone 200 MG Tablet PO SCH ×3 (03:49→18:41)
[2018-06-09] MEDS: Levothyroxine 50 MCG Tablet PO SCH (06:00)
[2018-06-09] MEDS: Budesonide-Formoterol 160/4.5 MCG 6 GM Inhaler INH SCH ×2 (08:38→20:28)
[2018-06-09] MEDS: Polyethylene Glycol 3350 17 GM Packet PO SCH (08:39)
[2018-06-09] MEDS: Rivaroxaban 20 MG Tablet PO SCH (08:39)
[2018-06-09] MEDS: Multivitamin/Minerals Therapeutic Tablet PO SCH (08:39)
[2018-06-09] MEDS: Metoprolol Tartrate 50 MG Tablet PO SCH ×2 (08:39→20:26)
[2018-06-09] MEDS: Docusate Sodium 100 MG Capsule PO SCH ×2 (08:40→20:26)
[2018-06-09] MEDS: Insulin NovoLOG Aspart Correctional Sugar Inj SQ SCH ×4 (08:40→20:24)
[2018-06-09] MEDS ORDERED: Amiodarone Inj 150 MG in Dextrose 5% in Water Inj 97 ML IV.SIG ONE ×2 (08:59)
[2018-06-09 11:20] LABS: Calcium 8.4 mg/dL (8.5-10.1); Carbon Dioxide 28.2 meq/L (21.0-32.0); Potassium 3.4 meq/L (3.5-5.1)
--- NOTE | 2018-06-09 15:31 | P.PNCV ---
- Note Subjective/Hospital Course: 57/ male recently seen in office by Dr Lynn for new onset progressive SOB since January, of atrial fib on xarelto. Work up included cardiac cath demonstrating significant disease involving ostium of the LAD . Normal EF PMH: COPD, HLP, HTN, Thyroid disease , chronic tobacco abuse 06/04 pt electively admitted for surgery PREOPERATIVE DIAGNOSES 1. Coronary Artery Disease 2. Chronic Atrial Fibrillation POSTOPERATIVE DIAGNOSES Same SURGICAL PROCEDURE 1. Minimally Invasive Coronary Artery Bypass Grafting (MIDCAB) with LOGAN to LAD 2. Left Atrial Appendage Ligation with the Atri-Clip Device 3. Intraoperative Vein Mapping 4. Intercostal Nerve Block extubated after surgery crystalloid 3200cc, EBL 300cc 06/05 up in chair, painful in NSR chest tube to wall suction on 06/06 very little pulm reserve, desats easily with any exertion on nebs, symbicort went back into afib last night / on amiodarone gtt/ resume taper dose this evening / restart xarelto and dc po plavix chest tube dc , prevena dressing dc continue ASA, statin BB 06/07/18 c/o incisional pain, still on O2 06/08/18 Diuresing well. Still up ~4kg Continues on 2 liters O2 with dyspnea on exertion 06/09 went back into afib rvr, > NSR additional IV amiodarone given replace potassium eval for dc in am continue with amiodarone po / taper dose at discharge Objective: Vital Signs - 24 hr 06/08/18 16:00 06/08/18 17:00 06/08/18 18:00 Temperature Pulse Rate 82 72 73 Respiratory Rate Blood Pressure Pulse Oximetry 06/08/18 19:00 06/08/18 20:00 06/08/18 20:12 Temperature 97.5 F L Pulse Rate 72 72 Respiratory Rate 20 Blood Pressure 118/66 Pulse Oximetry 93 L 93 L 06/08/18 21:00 06/08/18 22:00 06/08/18 23:00 Temperature 97.5 F L Pulse Rate 72 72 56 L Respiratory Rate 20 Blood Pressure 96/58 L Pulse Oximetry 93 L 06/09/18 00:00 06/09/18 01:00 06/09/18 02:00 Temperature Pulse Rate 56 L 50 L 58 L Respiratory Rate Blood Pressure Pulse Oximetry 06/09/18 03:00 06/09/18 04:00 06/09/18 05:00 Temperature 98.0 F Pulse Rate 65 62 70 Respiratory Rate 20 Blood Pressure 97/59 L Pulse Oximetry 93 L 06/09/18 06:00 06/09/18 07:00 06/09/18 08:00 Temperature 98.0 F Pulse Rate 66 69 76 Respiratory Rate 18 Blood Pressure 97/53 L Pulse Oximetry 95 06/09/18 09:00 06/09/18 10:00 06/09/18 10:57 Temperature Pulse Rate 134 H 72 Respiratory Rate Blood Pressure Pulse Oximetry 94 L 06/09/18 11:00 06/09/18 12:00 06/09/18 13:00 Temperature 97.9 F Pulse Rate 63 61 63 Respiratory Rate 18 Blood Pressure 90/52 L Pulse Oximetry 95 06/09/18 14:00 06/09/18 15:00 Temperature 98 F Pulse Rate 67 67 Respiratory Rate 18 Blood Pressure 96/53 L Pulse Oximetry 93 L Labs: Laboratory Results - last 12 hr 06/09/18 06/09/18 06/09/18 07:35 10:20 11:43 Sodium 138 Potassium 3.4 L Chloride 101 Carbon Dioxide 28.2 Anion Gap 9 BUN 33 H Creatinine 1.01 Estimated GFR 76 L POC Glucose 102 112 H Random Glucose 112 H Calcium 8.4 L Result Diagrams: 06/06/18 03:59 06/09/18 10:20 - Plan (1) S/P CABG x 1 Plan: Neuro: pain control Resp : pulm toileting nebs ezpap symbicort wean 02 as tolerated DC chest tube add two dose of solumedrol CV: BB, on ASA, statin , BB amiodarone change back to po amiodarone this pm xarelto GI: on heart healthy diet PPI endo: sliding scale CM to eval [facility]
[2018-06-09] MEDS ORDERED: Potassium Chloride 25 MEQ Effervescent Tablet PO ONE (15:44)
--- NOTE | 2018-06-09 16:00 | P.DS ---
Date of admission: 06/04/18 05:05 Primary care physician: Tadeo Blanca Attending physician on discharge: Olimpia Lynn Anticipated date of discharge: 06/10/18 Brief History from admission: 57/ male recently seen in office by Dr Lynn for new onset progressive SOB since January, of atrial fib on xarelto. Work up included cardiac cath demonstrating significant disease involving ostium of the LAD . Normal EF PMH: COPD, HLP, HTN, Thyroid disease , chronic tobacco abuse 06/04 pt electively admitted for surgery PREOPERATIVE DIAGNOSES 1. Coronary Artery Disease 2. Chronic Atrial Fibrillation DS: Diagnosis - Discharge Diagnosis (1) S/P CABG x 1 Status: Acute (2) CAD (coronary artery disease), hoopa coronary artery Status: Acute (3) Atrial fibrillation Status: Chronic (4) Hyperlipidemia Status: Chronic (5) Hypertension Status: Chronic DS: Medications - Discharge Medications Prescriptions: amiodarone 400 mg PO Q8H #60 tab docusate sodium [DOK] 100 mg PO BID #30 cap furosemide 40 mg PO DAILY #7 tab hydrocodone-acetaminophen 1 tab PO Q4H PRN #40 tab PRN Reason: Pain Scale 1 To 5 metoprolol tartrate 50 mg PO BID #60 tab nrdbkrws-mqqp-JO-calcium-mins [Thera M Plus (ferrous fumarat)] 1 tab PO DAILY # 30 tab potassium chloride [K-Tab] 20 meq PO DAILY #7 tab DS: Summary Hospital Course: 06/04 pt electively admitted for surgery PREOPERATIVE DIAGNOSES 1. Coronary Artery Disease 2. Chronic Atrial Fibrillation POSTOPERATIVE DIAGNOSES Same SURGICAL PROCEDURE 1. Minimally Invasive Coronary Artery Bypass Grafting (MIDCAB) with LOGAN to LAD 2. Left Atrial Appendage Ligation with the Atri-Clip Device 3. Intraoperative Vein Mapping 4. Intercostal Nerve Block extubated after surgery crystalloid 3200cc, EBL 300cc 06/05 up in chair, painful in NSR chest tube to wall suction on 06/06 very little pulm reserve, desats easily with any exertion on nebs, symbicort went back into afib last night / on amiodarone gtt/ resume taper dose this evening / restart xarelto and dc po plavix chest tube dc , prevena dressing dc continue ASA, statin BB 06/07/18 c/o incisional pain, still on O2 06/08/18 Diuresing well. Still up ~4kg Continues on 2 liters O2 with dyspnea on exertion 06/09 went back into afib rvr, > NSR additional IV amiodarone given replace potassium eval for dc in am continue with amiodarone po / taper dose at discharge - Time Spent with Patient Total time spent providing and/or coordinating discharge services: Greater than 30 minutes - Quality: VTE Deep Vein Thrombosis/Pulmonary Embolism Present on Admission: No Exam Vital signs: Vital Signs 06/08/18 16:00 06/08/18 17:00 06/08/18 18:00 Temperature Pulse Rate 82 72 73 Respiratory Rate Blood Pressure Pulse Oximetry 06/08/18 19:00 06/08/18 20:00 06/08/18 20:12 Temperature 97.5 F L Pulse Rate 72 72 Respiratory Rate 20 Blood Pressure 118/66 Pulse Oximetry 93 L 93 L 06/08/18 21:00 06/08/18 22:00 06/08/18 23:00 Temperature 97.5 F L Pulse Rate 72 72 56 L Respiratory Rate 20 Blood Pressure 96/58 L Pulse Oximetry 93 L 06/09/18 00:00 06/09/18 01:00 06/09/18 02:00 Temperature Pulse Rate 56 L 50 L 58 L Respiratory Rate Blood Pressure Pulse Oximetry 06/09/18 03:00 06/09/18 04:00 06/09/18 05:00 Temperature 98.0 F Pulse Rate 65 62 70 Respiratory Rate 20 Blood Pressure 97/59 L Pulse Oximetry 93 L 06/09/18 06:00 06/09/18 07:00 06/09/18 08:00 Temperature 98.0 F Pulse Rate 66 69 76 Respiratory Rate 18 Blood Pressure 97/53 L Pulse Oximetry 95 06/09/18 09:00 06/09/18 10:00 06/09/18 10:57 Temperature Pulse Rate 134 H 72 Respiratory Rate Blood Pressure Pulse Oximetry 94 L 06/09/18 11:00 06/09/18 12:00 06/09/18 13:00 Temperature 97.9 F Pulse Rate 63 61 63 Respiratory Rate 18 Blood Pressure 90/52 L Pulse Oximetry 95 06/09/18 14:00 06/09/18 15:00 Temperature 98 F Pulse Rate 67 67 Respiratory Rate 18 Blood Pressure 96/53 L Pulse Oximetry 93 L Intake & Output 06/08/18 06/09/18 06/09/18 18:59 06:59 18:59 Intake Total 480 / 480 100 / 100 Output Total 2475 / 2475 500 / 500 Balance -2475 / -2475 -20 / -20 100 / 100 Weight 112 kg Intake: IV 100 / 100 Cordarone Inj 150 MG In D5W Inj 100 / 100 97 ML @ 100 mls/hr IV.SIG ONCE ONE Rx#:[id number] Oral 480 / 480 Output: Urine 2475 / 2475 500 / 500 Other: Date of Last Bowel Movement 06/08/18 06/08/18 06/08/18 # Bowel Movements 1 - Constitutional no acute distress - Routine HEENT Exam Head: Present: normocephalic, atraumatic Eye: Present: EOMI, PERRL, normal accommodation ENT: Present: mucous membranes moist - Routine Neck Exam Present: supple, full ROM - Routine Chest/Breast/Axilla Exam Chest wall: Present: tenderness - Routine Respiratory Exam Present: CTA bilaterally - Routine Cardiovascular Exam Present: RRR, S1, S2 - Routine Abdominal Exam Present: soft - Routine Extremities Exam Present: full ROM, pulses intact, normal capillary refill - Routine Skin Exam Present: intact, wounds Comments: left chest wall incision intact and well approximated - Routine Neurological Exam Present: alert, oriented X3, CN II-XII intact Results Procedures completed during hospitalization: Date of procedure: 06/04/18 Anesthesia: GETA Surgeon: Olimpia Lynn MD Operation and Findings: PREOPERATIVE DIAGNOSES 1. Coronary Artery Disease 2. Chronic Atrial Fibrillation POSTOPERATIVE DIAGNOSES Same SURGICAL PROCEDURE 1. Minimally Invasive Coronary Artery Bypass Grafting (MIDCAB) with LOGAN to LAD 2. Left Atrial Appendage Ligation with the Atri-Clip Device 3. Intraoperative Vein Mapping 4. Intercostal Nerve Block Labs on day of discharge: Labs from last 24 hours 06/09/18 06/09/18 06/09/18 11:43 10:20 07:35 Sodium 138 Potassium 3.4 L Chloride 101 Carbon Dioxide 28.2 Anion Gap 9 BUN 33 H Creatinine 1.01 Estimated GFR 76 L POC Glucose 112 H 102 Random Glucose 112 H Calcium 8.4 L 06/08/18 19:52 Sodium Potassium Chloride Carbon Dioxide Anion Gap BUN Creatinine Estimated GFR POC Glucose 177 H Random Glucose Calcium - Impressions ITS Impressions Chest X-Ray 06/07/18 06:00 CONCLUSION: No pneumothorax is visualized, as questioned. Lungs are underinflated and there is bibasilar airspace opacity, left greater than right, representing either atelectasis or consolidation. Discharge Plan - Discharge Disposition Patient Disposition: W/Home Health Service - Discharge Condition Condition: Good - Discharge Order Discharge Orders: Discharge Order (Routine); Ordered 06/10/18 Ordered By: Kierra Pagan - Discharge Details Anticipated Discharge Date: 06/10/18 Discharge Comment: if heart rate stable - Physicians Team Attending Provider: Olimpia Lynn - Rxs /Orders / Referrals /Forms Prescriptions: New amiodarone 200 mg Tablet 400 mg PO Q8H Qty: 60 RF: 0 docusate sodium [DOK] 100 mg Capsule 100 mg PO BID Qty: 30 RF: 0 furosemide 40 mg Tablet 40 mg PO DAILY Qty: 7 RF: 1 hydrocodone-acetaminophen 5-325 mg Tablet 1 tab PO Q4H PRN (Reason: Pain Scale 1 To 5) Qty: 40 RF: 0 metoprolol tartrate 50 mg Tablet 50 mg PO BID Qty: 60 RF: 2 heldibly-jvjc-LP-calcium-mins [Thera M Plus (ferrous fumarat)] 9 mg iron-400 mcg Tablet 1 tab PO DAILY Qty: 30 RF: 2 potassium chloride [K-Tab] 20 mEq Tablet Extended Release 20 meq PO DAILY Qty: 7 RF: 1 Continue albuterol sulfate 2.5 mg /3 mL (0.083 %) Solution For Nebulization 2.5 mg INHALATION Q4H PRN (Reason: copd) albuterol sulfate [Ventolin HFA] 90 mcg/actuation Hfa Aerosol Inhaler 1 puff INHALATION Q4-6H PRN (Reason: copd) aspirin [Adult Low Dose Aspirin] 81 mg Tablet,Delayed Release (Dr/Ec) 81 mg PO HS fluticasone-salmeterol 232-14 mcg/actuation Aerosol Powdr Breath Activated 1 puff INHALATION BID levothyroxine 50 mcg Capsule 50 mcg PO HS rivaroxaban [Xarelto] 20 mg Tablet 20 mg PO HS rosuvastatin 20 mg Tablet 20 mg PO HS umeclidinium 62.5 mcg/actuation Blister With Device 1 inh INHALATION Q24H Discontinued diltiazem HCl 240 mg Capsule,Extended Release 24hr 240 mg PO HS Referrals: Tadeo Blanca MD [Other] - See Instructions ( Your appointment has been scheduled for [06/12/18] at [3:15 PM] If you cannot make this appointment, please call the office to reschedule ) DENNIS BALTAZAR DR [Other] - See Instructions ( Your appointment has been scheduled for [07/04/18] at [12:00 PM] If you cannot make this appointment, please call the office to reschedule ) Kierra Pagan [[facility] RN PRACTITIONER] - See Instructions ( Your appointment has been scheduled for [06/19/18] at [11:30 am] If you cannot make this appointment, please call the office to reschedule ) - Discharge Instructions Patient Printed Instructions: CABG (Coronary Artery Bypass Graft) (DC) Additional Instructions: HOME HEALTH CARE HAS BEEN ARRANGED WITH [facility] ([facility]), CONTACT# [phone] Incentive spirometry Q1 hr x 10, while awake, also use acapella device hourly whole awake Sternal Breast Bone Precautions: NO pushing or pulling, ( pt must use sternal pillow to support chest with all activities and with coughing ( takes up to 3 months breast bone to heal ) Daily incision care: ok to shower daily, no tub bath. Wash all incisions with liquid dial soap, clean wash cloth to each site, rinse and pat dry. Observe for any signs of infection, such as drainage which is dark yellow, ibrahim, green or foul smelling. Immediately report to the surgeon any drainage from the chest incision, or legs, and for any abnormal drainage from the chest tube sites. Notify surgeon if any temp >101.5 degrees F. When specialty dressing removed/ or if you do not have one, continue to shower daily as above, then rinse and pat incision dry and paint with betadine daily x 5 days. Allow steri strips to fall off if you have any. Avoid lotions, creams, salves, oils, etc. for the first month F/U appointment: as per DC instructions: PCP in 2 weeks, CV surgeon 2 weeks, Leisure Travel Agent 3-4 weeks For any questions regarding incisions/ dressing / meds / post op care or above Symptoms, Saturday 8am-5pm Heart & Vascular Surgery Office ( Dr. Lynn & Dr. Wilburn), After Hours / Nights (5pm -8am) Weekends and Holidays Please call [facility] Cardiac Intermediate [facility] Unit ([facility]) Charge Nurse
[2018-06-10] MEDS: Amiodarone 200 MG Tablet PO SCH (03:11)
[2018-06-10] MEDS: Levothyroxine 50 MCG Tablet PO SCH (06:27)
[2018-06-10] MEDS: Insulin NovoLOG Aspart Correctional Sugar Inj SQ SCH (08:38)
[2018-06-10] MEDS: Metoprolol Tartrate 50 MG Tablet PO SCH (08:38)
[2018-06-10] MEDS: Docusate Sodium 100 MG Capsule PO SCH (08:38)
[2018-06-10] MEDS: Multivitamin/Minerals Therapeutic Tablet PO SCH (08:38)
[2018-06-10] MEDS: Rivaroxaban 20 MG Tablet PO SCH (08:38)
[2018-06-10] MEDS: Budesonide-Formoterol 160/4.5 MCG 6 GM Inhaler INH SCH (08:39)
[2018-06-10] MEDS: Polyethylene Glycol 3350 17 GM Packet PO SCH (08:39)
[2018-06-10] MEDS ORDERED: Furosemide 40 MG Tablet PO SCH (09:00)
--- NOTE | 2018-06-10 09:55 | P.PNCV ---
- Note Subjective/Hospital Course: 57/ male recently seen in office by Dr Lynn for new onset progressive SOB since January, of atrial fib on xarelto. Work up included cardiac cath demonstrating significant disease involving ostium of the LAD . Normal EF PMH: COPD, HLP, HTN, Thyroid disease , chronic tobacco abuse 06/04 pt electively admitted for surgery PREOPERATIVE DIAGNOSES 1. Coronary Artery Disease 2. Chronic Atrial Fibrillation POSTOPERATIVE DIAGNOSES Same SURGICAL PROCEDURE 1. Minimally Invasive Coronary Artery Bypass Grafting (MIDCAB) with LOGAN to LAD 2. Left Atrial Appendage Ligation with the Atri-Clip Device 3. Intraoperative Vein Mapping 4. Intercostal Nerve Block extubated after surgery crystalloid 3200cc, EBL 300cc 06/05 up in chair, painful in NSR chest tube to wall suction on 06/06 very little pulm reserve, desats easily with any exertion on nebs, symbicort went back into afib last night / on amiodarone gtt/ resume taper dose this evening / restart xarelto and dc po plavix chest tube dc , prevena dressing dc continue ASA, statin BB 06/07/18 c/o incisional pain, still on O2 06/08/18 Diuresing well. Still up ~4kg Continues on 2 liters O2 with dyspnea on exertion 06/09 went back into afib rvr, > NSR additional IV amiodarone given replace potassium eval for dc in am continue with amiodarone po / taper dose at discharge 06/10 back into NSR stable for dc home Objective: Vital Signs - 24 hr 06/09/18 10:00 06/09/18 10:57 06/09/18 11:00 Temperature 97.9 F Pulse Rate 72 63 Respiratory Rate 18 Blood Pressure 90/52 L Pulse Oximetry 94 L 95 06/09/18 12:00 06/09/18 13:00 06/09/18 14:00 Temperature Pulse Rate 61 63 67 Respiratory Rate Blood Pressure Pulse Oximetry 06/09/18 15:00 06/09/18 16:00 06/09/18 17:00 Temperature 98 F Pulse Rate 67 68 83 Respiratory Rate 18 Blood Pressure 96/53 L Pulse Oximetry 93 L 06/09/18 18:00 06/09/18 19:00 06/09/18 20:00 Temperature 99.2 F Pulse Rate 77 77 65 Respiratory Rate 18 Blood Pressure 121/59 L Pulse Oximetry 93 L 06/09/18 21:00 06/09/18 22:00 06/09/18 23:00 Temperature 97.7 F Pulse Rate 60 60 66 Respiratory Rate 18 Blood Pressure 107/62 Pulse Oximetry 93 L 06/10/18 00:00 06/10/18 01:00 06/10/18 02:00 Temperature Pulse Rate 63 60 68 Respiratory Rate Blood Pressure Pulse Oximetry 06/10/18 03:00 06/10/18 04:00 06/10/18 05:00 Temperature 97.7 F Pulse Rate 62 62 58 L Respiratory Rate 18 Blood Pressure 119/61 Pulse Oximetry 93 L 06/10/18 06:00 06/10/18 07:00 06/10/18 07:32 Temperature 98.4 F Pulse Rate 64 70 Respiratory Rate 18 Blood Pressure 100/57 L Pulse Oximetry 96 96 GENERAL: A&O x 3 SKIN: Warm and dry. incision intact left chest area/ tape burris noted around incision composite engineer: Normocephalic. EYES: No scleral icterus. No injection or drainage. NECK: Supple, trachea midline. No JVD or lymphadenopathy. CARDIOVASCULAR: Regular rate and rhythm without murmurs, gallops, or rubs. RESPIRATORY: Breath sounds equal bilaterally. No accessory muscle use. GASTROINTESTINAL: Abdomen soft, non-tender, nondistended. MUSCULOSKELETAL: No cyanosis, or edema. BACK: Nontender without obvious deformity. No CVA tenderness. Labs: Laboratory Results - last 12 hr 06/10/18 06/10/18 05:26 07:42 POC Glucose 101 Magnesium 2.6 H Result Diagrams: 06/06/18 03:59 06/09/18 10:20 - Plan (1) S/P CABG x 1 Plan: Neuro: pain control Resp : pulm toileting nebs ezpap symbicort wean 02 as tolerated CV: BB, on ASA, statin , BB amiodarone po amiodarone xarelto GI: on heart healthy diet PPI endo: sliding scale CM to eval [facility]
== END 2018-06-10 12:10 | disposition home health service (06) | DRG 236 ==
LOC: HSDI 06-04 05:05 → HCVI 06-04 13:10 → HCPC 06-06 18:47
PROVIDERS: ADMIT Thoracic Surgery (Cardiothoracic Vascular Surgery); ATTEND Thoracic Surgery (Cardiothoracic Vascular Surgery)
CPT/HCPCS: 36430; 71010; 71045; 76937; 80048; 82948; 82962; 83735; 84100; 84443; 85014; 85025; 85027; 86850; 86900; 86901; 86923; 93005; 93312; 93318; 94002; 94150; 94618; 94620; 94640; 94650; 94651; 94656; 94664; 94665; 94667; 97110; 97116; 97162; 97530; C1768; C9248; C9290; J0131; J0282; J0360; J1100; J1644; J1815; J1817; J1885; J1940; J2250; J2270; J2310; J2440; J2920; J3010; J3370; J3480; J7040; J7060; J7120; P9016